=== PATIENT | male | born 1985 | race Caucasian/White ===

== ENCOUNTER 2016-09-19 15:43 | Emergency (ER) | payer OTHER ==
[~2016-09-19] VITALS: Ht 180.3 cm; Wt 73.9 kg
[~2016-09-19 15:43] MED LIST: BACTRIM,SEPT1 TABLET PO; KLONOPIN1 MG PO; NOHOMEMEDS
[2016-09-19 16:44] LABS: HEMATOCRIT 44.5 % (38.0-50.0); MCHC 32.8 G/DL (30.0-36.0); MCV 85.4 FL (86-99); MEAN PLAT.VOLUME 9.1 uM^3 (9.0-12.4); PLATELET COUNT 455 K/uL (156-360); RBC DIS.WIDTH-CV 13.8 % (11.8-14.6); RBC DIS.WIDTH-SD 43.4 % (39-53); RED BLOOD COUNT 5.21 M/uL (4.00-5.50); WHITE BLOOD COUNT 8.9 K/uL (4.1-10.2)
[2016-09-19 16:54] LABS: CHLORIDE 101 mEq/L (99-109); POTASSIUM 3.5 mEq/L (3.7-5.4); SODIUM 139 mEq/L (136-147)
[2016-09-19 16:56] LABS: GLUCOSE 59 mg/dL (70-99)
[2016-09-19 16:58] LABS: ANION GAP 12 MEQ/L (2-14)
[2016-09-19 17:00] LABS: GFR ESTIMATE (CALCULATED) > 59 mL/min/
[2016-09-19 17:01] LABS: UREA NITROGEN (BUN) 6 mg/dL (9-23)
[2016-09-19] MEDS ORDERED: TRILEPTAL300 MG PO (17:18)
[2016-09-19] MEDS ORDERED: REMERON30 M2 PO (17:19)
[2016-09-19] MEDS ORDERED: NEURONTIN300 MG PO (17:19)
[2016-09-19] MEDS ORDERED: BACLOFEN20 MG PO (17:19)
[2016-09-19] MEDS ORDERED: BACTRIM,SEPT1 TABLET PO (20:00)
[2016-09-19] MEDS ORDERED: PERCOCET 5/31 TABLET PO (20:00)
[2016-09-19 20:22] LABS: POINT-OF-CARE METER ID UU14100415
[2016-09-19 20:33] VITALS: BP 115/74
== END 2016-09-19 20:34 | disposition home or self-care (01) ==
LOC: EME 15:43
PROVIDERS: Emergency Medicine; Nurse Practitioner Family
DX: L03.116 Cellulitis of left lower limb (principal); M86.652 Other chronic osteomyelitis, left thigh
CPT/HCPCS: 73701; 80048; 82948; 85027; 87040; 87070; 87075; 87076; 87205; 99281; 99285; J1885; J2405; J7030

== ENCOUNTER 2017-02-16 19:46 | Emergency (ER) | payer OTHER ==
[~2017-02-16] VITALS: Ht 177.8 cm; Wt 69.2 kg
[~2017-02-16 19:46] MED LIST changes: +BACLOFEN20 MG PO; +NEURONTIN300 MG PO; +PERCOCET 5/31 TABLET PO; +REMERON30 M2 PO; +TRILEPTAL300 MG PO
[2017-02-16 20:05] VITALS: BP 111/78
[2017-02-16 20:23] LABS: BASOPHIL COUNT 0.1 K/uL (0-0.1); EOSINOPHIL (%) 3.4 % (0-5); EOSINOPHIL COUNT 0.5 K/uL (0-0.3); IMMATURE GRANULOCYTE (%) 0.7 % (0.0-0.7); IMMATURE GRANULOCYTE COUNT 0.1 K/uL; INSTRUMENT ABS NEUTROPHIL CT 11.5 K/uL; LYMPHOCYTE COUNT 1.4 K/uL (1.0-2.8); MCH 28.7 PG (29.0-34.0); MCHC 33.2 G/DL (30.0-36.0); MCV 86.6 FL (86-99); MEAN PLAT.VOLUME 9.8 uM^3 (9.0-12.4); NEUTROPHIL COUNT 11.5 K/uL (1.8-6.4); PLATELET COUNT 481 K/uL (156-360); RBC DIS.WIDTH-CV 13.7 % (11.8-14.6); RBC DIS.WIDTH-SD 43.5 % (39-53); RED BLOOD COUNT 4.39 M/uL (4.00-5.50); WHITE BLOOD COUNT 14.6 K/uL (4.1-10.2)
[2017-02-16 20:33] LABS: CHLORIDE 97 mEq/L (99-109); POTASSIUM 2.8 mEq/L (3.7-5.4); SODIUM 137 mEq/L (136-147)
[2017-02-16 20:34] LABS: GLUCOSE 172 mg/dL (70-99)
[2017-02-16 20:36] LABS: ANION GAP 10 MEQ/L (2-14)
[2017-02-16 20:38] LABS: GFR ESTIMATE (CALCULATED) > 59 mL/min/
[2017-02-16 21:04] LABS: UREA NITROGEN (BUN) 9 mg/dL (9-23)
== END 2017-02-16 22:36 | disposition left against medical advice (07) ==
LOC: EME 19:46
DX: L02.416 Cutaneous abscess of left lower limb (principal); Z53.21 Procedure and treatment not carried out due to patient leaving prior to being seen by health care provider
CPT/HCPCS: 80048; 83605; 85025; 87040

== ENCOUNTER 2017-07-23 20:12 | Emergency (ER) | payer OTHER ==
[~2017-07-23] VITALS: Ht 182.9 cm; Wt 75.0 kg
[2017-07-23 20:17] VITALS: BP 129/75
== END 2017-07-23 23:14 | disposition left against medical advice (07) ==
LOC: EME 20:12
DX: S71.102A Unspecified open wound, left thigh, initial encounter (principal); Z53.21 Procedure and treatment not carried out due to patient leaving prior to being seen by health care provider